=== PATIENT | male | born 1975 | race Caucasian/White ===

== ENCOUNTER 2018-07-23 09:46 | Inpatient (IN) ==
[2018-07-23] MEDS ORDERED: SODIUM CHLORIDE 0.9% 1,000 ML IV STA (10:04)
[2018-07-23] MEDS ORDERED: LORazepam 2 MG/1 ML VIAL ONE (10:12)
[2018-07-23] MEDS ORDERED: LORazepam 2 MG/1 ML VIAL IV STA ×2 (10:15→10:22)
[2018-07-23] MEDS ORDERED: HALOPERIDOL 5 MG/ML AMP ONE (10:21)
[2018-07-23] MEDS ORDERED: HALOPERIDOL 5 MG/ML AMP IM STA (10:22)
[2018-07-23 10:46] LABS: Basophils % 0.5 % (0.0-0.8); Eosinophils # 0.1 10*3/uL (0.0-0.87); Eosinophils % 0.7 % (0.00-10.9); Hematocrit 43.3 VOL% (42.0-52.0); Hemoglobin 14.3 GM/DL (14.0-18.0); Immature Granulocytes % 0.3 %; Immature Granulocytes Absolute 0.02 #; Lymphocytes # 1.6 10*3/uL (1.4-4.0); Mean Corpuscular Hemoglobin 32 PG (27-34); Mean Corpuscular Volume 96.9 FL (87-102); Mean Platelet Volume 9.8 FL (9.6-12.0); Monocytes # 0.6 10*3/uL (0.11-0.8); Monocytes % 7.5 % (1.7-12.7); Neutrophils # 5.2 10*3/uL (1.4-7.4); Platelet Count 336 T/CUMM (130-400); Red Blood Count 4.47 MC/CUMM (3.8-5.5); Red Cell Distribution Width 13.1 % (9.3-17.3); White Blood Count 7.4 T/CUMM (4-12)
[2018-07-23 11:12] LABS: Alanine Aminotransferase 44 U/L (16-61); Albumin 3.5 G/DL (3.4-5.0); Alkaline Phosphatase 85 U/L (45-117); Aspartate Amino Transferase 75 U/L (0-37); Blood Urea Nitrogen 19 MG/DL (7-18); Calcium 8.5 MG/DL (8.5-10.1); Glucose 81 MG/DL (74-106); Osmolality,Calculated 286.8 MOS/KG (273-304); Potassium 3.6 MMOL/L (3.5-5.1); Sodium 144 MMOL/L (136-145); Total Protein 6.8 G/DL (6.4-8.3)
[2018-07-23 11:17] LABS: Barbiturates Screen,Urine Negative (Negative); Benzodiazepines Screen,Urine Negative (Negative); Cannabinoid Screen,Urine Negative (Negative); Opiate Screen,Urine Negative (Negative); Phencyclidine Screen,Urine Negative (Negative)
[2018-07-23] MEDS ORDERED: MORPHINE 4 MG/1 ML VIAL IV PRN (15:19)
[2018-07-23] MEDS ORDERED: LORazepam 2 MG/1 ML VIAL IV PRN (15:21)
[2018-07-23] MEDS: SODIUM CHLORIDE 0.9% 1,000 ML IV SCH (16:30)
[2018-07-23] MEDS: PHENYTOIN 100 MG/2 ML VIAL IV SCH (16:36)
[2018-07-23] MEDS: HEPARIN 5,000 UNIT/1 ML VIAL SUBCUT SCH (16:43)
[2018-07-24] MEDS: SODIUM CHLORIDE 0.9% 1,000 ML IV SCH ×2 (00:24→05:49)
[2018-07-24] MEDS: PHENYTOIN 100 MG/2 ML VIAL IV SCH ×4 (00:26→17:24)
[2018-07-24] MEDS: HEPARIN 5,000 UNIT/1 ML VIAL SUBCUT SCH ×3 (00:26→15:02)
[2018-07-24 04:50] LABS: Basophils % 0.6 % (0.0-0.8); Eosinophils # 0.1 10*3/uL (0.0-0.87); Eosinophils % 1.4 % (0.00-10.9); Hematocrit 42.8 VOL% (42.0-52.0); Hemoglobin 13.9 GM/DL (14.0-18.0); Immature Granulocytes % 0.3 %; Immature Granulocytes Absolute 0.02 #; Lymphocytes # 2.7 10*3/uL (1.4-4.0); Lymphocytes % 37.5 % (21.2-54.2); Mean Corpuscular HGB Conc 32.5 GM/DL (32-36); Mean Corpuscular Hemoglobin 31 PG (27-34); Mean Corpuscular Volume 96.8 FL (87-102); Mean Platelet Volume 10.6 FL (9.6-12.0); Monocytes # 0.6 10*3/uL (0.11-0.8); Neutrophils # 3.7 10*3/uL (1.4-7.4); Neutrophils % 51.2 % (38.7-73.9); Platelet Count 317 T/CUMM (130-400); Red Blood Count 4.42 MC/CUMM (3.8-5.5); White Blood Count 7.1 T/CUMM (4-12)
[2018-07-24 04:52] LABS: Albumin 3.4 G/DL (3.4-5.0); Bilirubin,Total 0.5 MG/DL (0.2-1.0); Calcium 7.8 MG/DL (8.5-10.1); Osmolality,Calculated 288.6 MOS/KG (273-304); Potassium 3.4 MMOL/L (3.5-5.1); Total Protein 6.4 G/DL (6.4-8.3)
[2018-07-24] MEDS: LEVOTHYROXINE 100 MCG VIAL IV SCH (06:22)
[2018-07-24] MEDS: HALOPERIDOL 5 MG/ML AMP IV PRN ×2 (08:51→16:34)
[2018-07-24] MEDS: LORazepam 2 MG/1 ML VIAL IV PRN ×2 (08:52→16:33)
[2018-07-24] MEDS: diphenhydrAMINE 50 MG/1 ML VIAL IV PRN ×2 (08:52→16:34)
[2018-07-24] MEDS ORDERED: POTASSIUM CHLORIDE 20 MEQ PACK PO SCH (09:00)
[2018-07-24] MEDS: SODIUM CHLOR 0.9% KCL 40 MEQ 40 MEQ/1,000 ML BAG IV SCH ×2 (11:09→20:00)
[2018-07-25] MEDS: HEPARIN 5,000 UNIT/1 ML VIAL SUBCUT SCH ×3 (00:20→15:05)
[2018-07-25] MEDS: PHENYTOIN 100 MG/2 ML VIAL IV SCH ×2 (02:20→10:07)
[2018-07-25] MEDS: SODIUM CHLOR 0.9% KCL 40 MEQ 40 MEQ/1,000 ML BAG IV SCH ×2 (02:25→10:59)
[2018-07-25 05:52] LABS: Basophils % 0.5 % (0.0-0.8); Eosinophils # 0.1 10*3/uL (0.0-0.87); Eosinophils % 1.9 % (0.00-10.9); Hematocrit 42.3 VOL% (42.0-52.0); Hemoglobin 14.4 GM/DL (14.0-18.0); Immature Granulocytes % 0.1 %; Immature Granulocytes Absolute 0.01 #; Lymphocytes # 2.4 10*3/uL (1.4-4.0); Lymphocytes % 31.6 % (21.2-54.2); Mean Corpuscular Hemoglobin 32 PG (27-34); Mean Corpuscular Volume 94.2 FL (87-102); Mean Platelet Volume 10.4 FL (9.6-12.0); Monocytes # 0.6 10*3/uL (0.11-0.8); Monocytes % 8.3 % (1.7-12.7); Neutrophils # 4.3 10*3/uL (1.4-7.4); Neutrophils % 57.6 % (38.7-73.9); Platelet Count 280 T/CUMM (130-400); Red Blood Count 4.49 MC/CUMM (3.8-5.5); Red Cell Distribution Width 12.8 % (9.3-17.3); White Blood Count 7.5 T/CUMM (4-12)
[2018-07-25 06:10] VITALS: BP 137/79
[2018-07-25 06:17] LABS: Albumin 3.2 G/DL (3.4-5.0); Bilirubin,Total 0.4 MG/DL (0.2-1.0); Potassium 3.6 MMOL/L (3.5-5.1); Total Protein 6.1 G/DL (6.4-8.3)
[2018-07-25] MEDS: LEVOTHYROXINE 100 MCG VIAL IV SCH (10:05)
[2018-07-25] MEDS: LORazepam 2 MG/1 ML VIAL IV PRN (15:22)
== END 2018-07-25 15:29 | DRG 885 ==
LOC: EDBD → EDUNIT# → N.ED 09:46 → N.EDINP 15:19 → N.CC 21:52
PROVIDERS: ADMIT Hospitalist; ATTEND Hospitalist